=== PATIENT | male | born 2000 | race Caucasian/White ===

== ENCOUNTER 2022-10-31 07:42 | Inpatient (IN) | payer OTHER ==
[~2022-10-31] VITALS: Ht 167.6 cm; Wt 68.1 kg
[2022-10-31] MEDS ORDERED: NS 1,000 ML IV ONE (08:15)
[2022-10-31] MEDS ORDERED: KETOROLAC 30 MG/ML 1ML VIAL IV ONE (08:15)
[2022-10-31] MEDS ORDERED: ACETAMINOPHEN 500 MG TAB PO ONE (08:15)
[2022-10-31] MEDS ORDERED: ISOVUE-370 76% 100ML VIAL As Ordered ONE (08:41)
[2022-10-31] MEDS ORDERED: AMPICILLIN SOD/SULBACTAM SOD 3 GM in D5W MINI-BAG PLUS 100 ML IV ONE (08:45)
[2022-10-31 08:47] LABS: HEMATOCRIT 37.8 % (42.0-52.0); HEMOGLOBIN 12.6 g/dl (13.5-17.5); MEAN CORPUSCULAR HGB CONC 33.3 g/dl (32.0-36.5); PLATELET COUNT, AUTOMATED 246 10^3/uL (150-450); WHITE BLOOD COUNT 13.2 10^3/uL (4.0-10.0)
[2022-10-31 09:21] LABS: ATYPICAL LYMPH 15 % (0-5); BASOPHILS 1 % (0-1); LYMPHOCYTES 15 % (16-44); MONOCYTES 5 % (0-5); NEUTROPHILS 56 % (28-66); PLATELET ESTIMATE NORMAL (NORMAL)
[2022-10-31 09:25] LABS: RSV AMPLIFICATION NEGATIVE (NEGATIVE)
[2022-10-31 09:56] LABS: MONO REFLEX EBV COMP POSITIVE (NEGATIVE)
[2022-10-31] MEDS ORDERED: NS 980 ML in IV 1 EA IV ONE (10:55)
[2022-10-31] MEDS ORDERED: CEPACOL LOZENGE PO PRN (11:20)
[2022-10-31 13:19] VITALS: BP 106/57
[2022-10-31] MEDS ORDERED: AMOX875T PO (14:34)
[2022-10-31] MEDS ORDERED: ADVI200T PO (14:34)
[2022-10-31] MEDS ORDERED: HOME MED LIST COMPLETE! XX SCH (14:35)
[2022-10-31] MEDS: AMPICILLIN SOD/SULBACTAM SOD 3 GM in D5W MINI-BAG PLUS 100 ML IV SCH ×2 (16:05→22:10)
[2022-10-31 22:00] VITALS: BP 119/62
[2022-11-01] MEDS: AMPICILLIN SOD/SULBACTAM SOD 3 GM in D5W MINI-BAG PLUS 100 ML IV SCH ×4 (03:18→20:30)
[2022-11-01 06:00] VITALS: BP 105/60
[2022-11-01 07:17] LABS: HEMATOCRIT 35.8 % (42.0-52.0); HEMOGLOBIN 12.1 g/dl (13.5-17.5); MEAN CORPUSCULAR HEMOGLOBIN 30.5 pg (27.0-33.0); MEAN CORPUSCULAR HGB CONC 33.8 g/dl (32.0-36.5); MEAN CORPUSCULAR VOLUME 90.2 fl (80.0-96.0); PLATELET COUNT, AUTOMATED 265 10^3/uL (150-450); RED BLOOD COUNT 3.97 10^6/uL (4.30-6.10); WHITE BLOOD COUNT 12.8 10^3/uL (4.0-10.0)
[2022-11-01 07:44] LABS: BLOOD UREA NITROGEN 10 MG/DL (9-23); CALCIUM LEVEL 9.2 MG/DL (8.5-10.1); CARBON DIOXIDE LEVEL 28 MMOL/L (20-31); CHLORIDE LEVEL 103 MMOL/L (98-107); CREATININE FOR GFR 0.87 MG/DL (0.70-1.30); GLOMERULAR FILTRATION RATE > 60.0 (>60); GLUCOSE, FASTING 107 MG/DL (60-100); POTASSIUM SERUM 4.3 MMOL/L (3.5-5.1); SODIUM LEVEL 139 MMOL/L (136-145)
[2022-11-01] MEDS: PANTOPRAZOLE 40MG TAB (PROTONIX) PO SCH (09:24)
[2022-11-01] MEDS: ENOXAPARIN 40MG/0.4ML SYRINGE (J1650 PER 10MG) SC SCH (09:25)
[2022-11-01 14:00] VITALS: BP 103/61
[2022-11-01 20:00] VITALS: BP 116/60
[2022-11-02] MEDS: AMPICILLIN SOD/SULBACTAM SOD 3 GM in D5W MINI-BAG PLUS 100 ML IV SCH ×2 (02:56→09:17)
[2022-11-02 06:00] VITALS: BP 109/57
[2022-11-02] MEDS: PANTOPRAZOLE 40MG TAB (PROTONIX) PO SCH (09:16)
[2022-11-02] MEDS: ENOXAPARIN 40MG/0.4ML SYRINGE (J1650 PER 10MG) SC SCH (09:17)
[2022-11-02] MEDS ORDERED: AMOX875T2 PO (09:35)
== END 2022-11-02 11:20 | disposition home or self-care (01) | DRG 872 ==
LOC: M ED 07:42 → M ED INP 10:52 → M MSPAV 13:15
PROVIDERS: ADMIT Internal Medicine; ATTEND Internal Medicine
DX: A41.9 Sepsis, unspecified organism (principal); J03.00 Acute streptococcal tonsillitis, unspecified; F17.200 Nicotine dependence, unspecified, uncomplicated